=== PATIENT | male | born 1985 | race Hispanic/Latino ===

== ENCOUNTER 2020-07-28 09:02 | Emergency (ER) | payer OTHER ==
[2020-07-28] MEDS ORDERED: HYDROCODONE/APAP 10/325 TAB ONE (10:05)
--- NOTE | 2020-07-28 11:01 | EDPHYS ---
Physician Documentation [facility] Name: Sterling Gutierrez Age: 34 yrs Sex: Male : 1985 Arrival Date: 07/28/2020 Time: 09:07 Bed 20 Private MD: ED Physician Reed Chin HPI: 07/28 09:49 This 34 yrs old Male presents to ER via Ambulatory with complaints of Left pm1 Knee Pain. 09:49 The patient presents with pain, that is acute. The complaints affect the left knee. pm1 Context: The problem was sustained outdoors, resulted from jumping down from a fence, the patient can fully bear weight, the patient is able to ambulate, Problem is a result from a previous injury: No. Onset: The symptoms/episode began/occurred yesterday. Modifying factors: The symptoms are alleviated by remaining still, the symptoms are aggravated by weight bearing, bending knee. Associated signs and symptoms: Pertinent negatives calf tenderness, numbness, swelling, tingling. Treatment prior to arrival includes: no previous treatment. Severity of symptoms: in the emergency department the symptoms are actually worse. The patient has not experienced similar symptoms in the past. The patient has not recently seen a physician. Historical: - Allergies: 09:16 No Known Allergies; ll1 - PMHx: 09:16 None; ll1 - PSHx: 09:16 None; ll1 - Immunization history:: Client reports having NOT received the Covid vaccine. Flu vaccine is not up to date. - Social history:: Smoking status: Patient denies any tobacco usage or history of. ROS: 09:49 Constitutional: Negative for fever, chills, and weight loss, Cardiovascular: Negative pm1 for chest pain, palpitations, and edema, Respiratory: Negative for shortness of breath, cough, wheezing, and pleuritic chest pain. 09:49 Skin: Negative for injury, rash, and discoloration, Neuro: Negative for headache, weakness, numbness, tingling, and seizure. 09:49 MS/extremity: Positive for pain, of the left knee, Negative for paresthesias, tingling. 09:49 All other systems are negative. Exam: 09:49 Constitutional: This is a well developed, well nourished patient who is awake, alert, pm1 and in no acute distress. Head/Face: Normocephalic, atraumatic. 09:49 Skin: Warm, dry with normal turgor. Normal color with no rashes, no lesions, and no evidence of cellulitis. 09:49 Eyes: Exam is negative for acute changes, Extraocular movements: intact throughout, Conjunctiva: normal, no injection, Sclera: icterus, is not appreciated. 09:49 ENT: Mouth: Lips: normal, Oral mucosa: normal, pink and intact, moist. 09:49 Cardiovascular: Exam negative for acute changes, Rate: normal, Rhythm: regular, Pulses: no pulse deficits are appreciated. 09:49 Respiratory: Exam negative for acute changes, respiratory distress, shortness of breath. 09:49 Musculoskeletal/extremity: Extremities: grossly normal except: noted in the left knee: Pain with anterior drawer test, valgus stress test, ROM: full active range of motion, in the left knee, full passive range of motion, in the left knee, Pulses: noted to be 2+ in the left dorsalis pedis artery, the left foot Sensation intact. 09:49 Neuro: Exam negative for acute changes, Orientation: is normal, Mentation: is normal, Motor: is normal, moves all fours. Vital Signs: 09:13 BP 117 / 77; Pulse 74; Resp 16; Temp 98.1; Pulse Ox 98% ; Weight 81.65 kg; Height 5 ft. ll1 6 in. (167.64 cm); Pain 9/10; 11:00 BP 121 / 69; Pulse 68; Resp 16 S; Pulse Ox 99% on R/A; ca1 09:13 Body Mass Index 29.05 (81.65 kg, 167.64 cm) ll1 MDM: 09:39 Patient medically screened. pm1 09:54 Data reviewed: vital signs. Data interpreted: Pulse oximetry: on room air is 98 %. pm1 Interpretation: normal. 11:00 Counseling: I had a detailed discussion with the patient and/or guardian regarding: the pm1 historical points, exam findings, and any diagnostic results supporting the discharge/admit diagnosis, radiology results, the need for outpatient follow up, a orthopedic surgeon, for further evaluation and treatment and MRI, to return to the emergency department if symptoms worsen or persist or if there are any questions or concerns that arise at home. 07/28 09:39 Order name: Knee Left 3 View XRAY pm1 07/28 09:49 Order name: Knee Immobilizer; Complete Time: 11:20 pm1 07/28 09:49 Order name: Crutches; Complete Time: 11:20 pm1 Administered Medications: 09:50 Drug: [place] (HYDROcodone-acetaminophen) 10 mg-325 mg 1 tabs Route: PO; ll1 11:00 Follow up: Response: No adverse reaction; Pain is decreased; RASS: Alert and Calm (0) ca1 Disposition: 07/28/20 11:01 Discharged to Home. Impression: Unspecified internal derangement of left knee. - Condition is Stable. - Discharge Instructions: Crutch Use, Knee Immobilizer, Knee Pain. - Prescriptions for Diclofenac Sodium 75 mg Oral Tablet, Delayed Release (E.C.) - take 1 tablet by ORAL route 2 times per day As needed; 30 tablet. - Medication Reconciliation Form, Thank You Letter, Antibiotic Education, Prescription Opioid Use, Work release form form. - Follow up: Emergency Department; When: As needed; Reason: Worsening of condition. Follow up: Private Physician; When: 2 - 3 days; Reason: Recheck today's complaints, Continuance of care, Re-evaluation by your physician. - Problem is new. - Symptoms have improved. Signatures: Dispatcher [employer] EDMS Chaka Segura NP OUTBOUND TELEMARKETING REPRESENTATIVE pm1 Skyla Estrella RN RN ca1 Ap Levy RN RN ll1 Corrections: (The following items were deleted from the chart) 11:30 11:01 07/28/2020 11:01 Discharged to Home. Impression: Unspecified internal derangement ca1 of left knee. Condition is Stable. Discharge Instructions: Crutch Use, Knee Pain, Knee Immobilizer. Prescriptions for Diclofenac Sodium 75 mg Oral Tablet, Delayed Release (E.C.) - take 1 tablet by ORAL route 2 times per day As needed; 30 tablet. and Forms are Medication Reconciliation Form, Thank You Letter, Antibiotic Education, Prescription Opioid Use. Follow up: Emergency Department; When: As needed; Reason: Worsening of condition. Follow up: Private Physician; When: 2 - 3 days; Reason: Recheck today's complaints, Continuance of care, Re-evaluation by your physician. Problem is new. Symptoms have improved. pm1
--- NOTE | 2020-07-28 11:01 | ER ---
Nurse's Notes [facility] Name: Sterling Gutierrez Age: 34 yrs Sex: Male : 1985 Arrival Date: 07/28/2020 Time: 09:07 Bed 20 Private MD: Diagnosis: Unspecified internal derangement of left knee Presentation: 07/28 09:13 Chief complaint: Patient states: L knee pain for 2 days. Started hurting yesterday ll1 morning after jumping a fence. Coronavirus screen: Client denies travel out of the [place] in the last 14 days. At this time, the client does not indicate any symptoms associated with coronavirus-19. Ebola Screen: Patient denies travel to an Ebola-affected area in the 21 days before illness onset. Initial Sepsis Screen: Does the patient meet any 2 criteria? No. Patient's initial sepsis screen is negative. Does the patient have a suspected source of infection? Yes: Bone or joint infection. Risk Assessment: Do you want to hurt yourself or someone else? Patient reports no desire to harm self or others. Onset of symptoms was July 27, 2020. 09:13 Method Of Arrival: Ambulatory ll1 09:13 Acuity: ZHAO 4 ll1 Historical: - Allergies: 09:16 No Known Allergies; ll1 - PMHx: 09:16 None; ll1 - PSHx: 09:16 None; ll1 - Immunization history:: Client reports having NOT received the Covid vaccine. Flu vaccine is not up to date. - Social history:: Smoking status: Patient denies any tobacco usage or history of. Screenin:39 Abuse screen: Denies threats or abuse. Nutritional screening: No deficits noted. ll1 Tuberculosis screening: No symptoms or risk factors identified. Fall Risk Ambulatory Aid- Crutches/Cane/Walker (15 pts). Gait- Impaired (20 pts.). Total Lynne Fall Scale indicates Low Risk Score (25-44 pts). Fall prevention measures have been instituted. Side Rails Up X 2 Frequent Obs/Assesments occuring As available Patient and Family Educated on Fall Prevention Program and strategies. Assessment: 09:38 General: Appears in no apparent distress. Behavior is calm, cooperative, appropriate ll1 for age. Pain: Complains of pain in L knee Quality of pain is described as aching, Pain began 1 day ago. Aggravated by increased activity. Musculoskeletal: Circulation, motion, and sensation intact. Capillary refill < 3 seconds, Range of motion: intact in all extremities, Tenderness present in L knee Reports pain in L knee. Injury Description: Bruise. 10:30 Reassessment: Patient appears in no apparent distress at this time. Patient and/or ca1 family updated on plan of care and expected duration. Pain level reassessed. Patient is alert, oriented x 3, equal unlabored respirations, skin warm/dry/pink. 11:29 Reassessment: Patient appears in no apparent distress at this time. Patient is alert, ca1 oriented x 3, equal unlabored respirations, skin warm/dry/pink. Vital Signs: 09:13 BP 117 / 77; Pulse 74; Resp 16; Temp 98.1; Pulse Ox 98% ; Weight 81.65 kg; Height 5 ft. ll1 6 in. (167.64 cm); Pain 9/10; 11:00 BP 121 / 69; Pulse 68; Resp 16 S; Pulse Ox 99% on R/A; ca1 09:13 Body Mass Index 29.05 (81.65 kg, 167.64 cm) ll1 ED Course: 09:07 Patient arrived in ED. wm 09:15 Triage completed. ll1 09:16 Arm band placed on. ll1 09:36 Patient placed in an exam room, on a stretcher. ll1 09:38 Ap Levy, MARITZA is Primary Nurse. ll1 09:39 Chaka Segura NP is PHCP. pm1 09:39 Reed Chin MD is Attending Physician. pm1 09:39 Patient has correct armband on for positive identification. Bed in low position. Call ll1 light in reach. Side rails up X 1. 10:50 Knee Left 3 View XRAY In Process Unspecified. EDMS 11:20 Crutch training done. Knee immobilizer applied on left knee. em1 11:29 No provider procedures requiring assistance completed. Patient did not have IV access ca1 during this emergency room visit. Administered Medications: 09:50 Drug: [place] (HYDROcodone-acetaminophen) 10 mg-325 mg 1 tabs Route: PO; ll1 11:00 Follow up: Response: No adverse reaction; Pain is decreased; RASS: Alert and Calm (0) ca1 Outcome: 11:01 Discharge ordered by . pm1 11:29 Discharged to home via wheelchair, with crutches, with family. ca1 11:29 Condition: stable 11:29 Discharge instructions given to patient, Instructed on discharge instructions, follow up and referral plans. medication usage, crutch walking, Demonstrated understanding of instructions, follow-up care, medications, crutch walking, splint care, Prescriptions given X 1. 11:30 Patient left the ED. ca1 Signatures: Dispatcher [employer] Indra Chao em1 Chaka Segura, GROUND SERVICE EQUIPMENT MECHANIC GROUND SERVICE EQUIPMENT MECHANIC pm1 Sklya Estrella RN RN ca1 Ap Levy RN RN 1 Rena Baker
[2020-07-28 11:36] VITALS: TEMP 98.1
[2020-07-28 11:38] VITALS: BP 121/69; O2SAT 99
--- NOTE | 2020-07-28 11:54 | RAD REPORT ---
EXAM DESCRIPTION: RAD - Knee Left 3 View - 07/28/2020 10:51 am CLINICAL HISTORY: PAIN COMPARISON: No comparisons FINDINGS: No fracture, dislocation or periosteal reaction.No joint effusion seen. No joint space jacklyn rowing. No soft tissue abnormality. IMPRESSION: Negative left knee. Clinical concerns for internal derangement or occult bony injury could be further assessed with MR im aging.
== END 2020-07-28 11:30 | disposition home or self-care (01) ==
LOC: ER 09:02
DX: M23.92 Unspecified internal derangement of left knee (principal)
CPT/HCPCS: 99284